=== PATIENT | female | born 1950 | race Caucasian/White ===

== ENCOUNTER 2021-12-26 17:32 | Observation (INO) ==
[2021-12-26] MEDS ORDERED: Melatonin 3 MG TABLET PO PRN (20:59)
[2021-12-26] MEDS ORDERED: *HR* HYDROcodone/Acet 5/325 mg TABLET PO PRN (20:59)
[2021-12-26] MEDS ORDERED: Acetaminophen 325 MG TABLET PO PRN (20:59)
[2021-12-26] MEDS ORDERED: Naloxone 0.4 MG/ML INJ IVP PRN (20:59)
[2021-12-26] MEDS ORDERED: Ondansetron 4 MG/2 ML VIAL IVP PRN (20:59)
[2021-12-26] MEDS ORDERED: 0.9 % Sodium Chloride 1,000 ML IVC SCH (21:00)
[2021-12-26] MEDS ORDERED: Ipratropium 1 PUFF INHALER IH PRN (21:56)
[2021-12-27] MEDS ORDERED: *HR* Dextrose 50 % in Water (Syg) 50 ML SYRINGE IVP PRN ×2 (01:18→19:12)
[2021-12-27] MEDS ORDERED: D5% in Water 1,000 ML IVC PRN ×2 (01:18→19:12)
[2021-12-27] MEDS ORDERED: Dextrose Gel 15 GM/37.5 ML TUBE PO PRN ×4 (01:18→19:12)
[2021-12-27] MEDS: 0.9 % Sodium Chloride 1,000 ML IVC SCH ×2 (01:52→08:29)
[2021-12-27 04:43] LABS: Basophils % 0.8 %; Eosinophils # 0.1 K/mcL (0.0-0.6); Eosinophils % 1.9 %; Hematocrit 37.7 % (35.3-44.9); Hemoglobin 12.1 g/dL (11.5-15.4); Immature Granulocytes % 0.6 % (0-4); Lymphocytes # 1.7 K/mcL (0.6-4.6); Mean Corpuscular HGB Conc 32.1 g/dL (31.6-35.5); Mean Corpuscular Hemoglobin 28.9 pg (28.0-33.3); Monocytes # 0.5 K/mcL (0.0-1.3); Monocytes % 8.9 %; Neutrophils # 2.9 K/mcL (1.6-8.9); Platelet Count 174 K/mcL (140-400); Red Blood Count 4.19 M/mcL (3.82-4.97); Red Cell Distribution Width 13.5 % (11.5-14.5); Segmented Neutrophils % 54.8 %; White Blood Count 5.3 K/mcL (4.3-11.1)
[2021-12-27 04:57] LABS: INR 1.1; Prothrombin Time 11.8 Seconds (9.4-12.1)
[2021-12-27 05:01] LABS: Calcium 8.9 mg/dL (8.6-10.3); Phosphorous 3.3 mg/dL (2.7-4.5); Potassium 4.4 mEq/L (3.5-5.1)
[2021-12-27 05:08] LABS: Chol/HDL Ratio 6.1 (0-4.9)
[2021-12-27] MEDS: *HR* OxyCODONE Immed Rel 5 MG TABLET PO PRN ×2 (08:35→16:32)
[2021-12-27] MEDS ORDERED: Multivit/Ca/Min/Fe/FA 1 TAB TABLET PO SCH (09:00)
[2021-12-27] MEDS ORDERED: Cholecalciferol (D-3) 1,000 UNIT (25MCG) TABLET PO SCH (09:00)
[2021-12-27] MEDS ORDERED: CeFAZolin Syr 2,000MG/20 ML 2,000 MG/20 ML SYRINGE IVPB ONE (10:32)
[2021-12-27 15:46] VITALS: TEMP 97.3
[2021-12-27] MEDS ORDERED: *HR* Propofol 200 MG/20 ML VIAL IVP ONE (17:33)
[2021-12-27] MEDS ORDERED: *HR* FentaNYL (PF) 100 MCG/2 ML VIAL ONE (17:33)
[2021-12-27] MEDS ORDERED: Lidocaine -MPF 2% 5 ML VIAL ONE (17:33)
[2021-12-27] MEDS ORDERED: Ondansetron 4 MG/2 ML VIAL ONE (17:33)
[2021-12-27] MEDS ORDERED: Isovue-300 50ML VIAL ONE (17:40)
[2021-12-27] MEDS ORDERED: EPHEDrine 50 MG/ML VIAL ONE (18:28)
[2021-12-27] MEDS ORDERED: Acetaminophen 325 MG TABLET PO PRN (19:12)
[2021-12-27 21:50] VITALS: BP 157/83; PULSE 85; O2SAT 91
[2021-12-28] MEDS ORDERED: Cholecalciferol (D-3) 1,000 UNIT (25MCG) TABLET PO SCH (09:00)
== END 2021-12-27 22:01 | disposition home or self-care (01) ==
LOC: 3BNU → SUATTDRO 20:06
PROVIDERS: ADMIT Internal Medicine; ATTEND Internal Medicine

== ENCOUNTER 2022-01-24 13:19 | Observation (INO) ==
[2022-01-24] MEDS ORDERED: ceFAZolin 2,000 MG in Water for inj. (sterile) 20 ML IVP ONE (13:53)
[2022-01-24] MEDS ORDERED: Ringers Solution, Lactated 1,000 ML IVC SCH (14:00)
[2022-01-24] MEDS ORDERED: *HR* FentaNYL (PF) 100 MCG/2 ML VIAL IVP PRN (14:15)
[2022-01-24] MEDS ORDERED: *HR* Propofol 200 MG/20 ML VIAL IVP ONE (14:43)
[2022-01-24] MEDS ORDERED: Lidocaine -MPF 2% 5 ML VIAL ONE (14:43)
[2022-01-24] MEDS ORDERED: Ondansetron 4 MG/2 ML VIAL ONE ×2 (14:43→18:04)
[2022-01-24] MEDS ORDERED: *HR* FentaNYL (PF) 100 MCG/2 ML VIAL ONE (14:43)
[2022-01-24] MEDS ORDERED: ceFAZolin 1,000 MG in 0.9 % Sodium Chloride 10 ML IVPB SCH (15:00)
[2022-01-24] MEDS: *HR* Meperidine 25 MG/ML SYRINGE IVP PRN ×2 (17:07→17:21)
[2022-01-24] MEDS ORDERED: Ondansetron 4 MG/2 ML VIAL IVP ONE (18:03)
[2022-01-24] MEDS ORDERED: *HR* Meperidine 25 MG/ML SYRINGE IVP ONE (18:05)
[2022-01-24] MEDS ORDERED: Acetaminophen IV 1,000 MG/100 ML BAG IVPB PRN (18:41)
[2022-01-24] MEDS ORDERED: Acetaminophen IV 1,000 MG/100 ML BAG IVPB ONE (18:45)
[2022-01-24] MEDS ORDERED: Ketorolac 30 MG/ML VIAL IM PRN (19:29)
[2022-01-24] MEDS ORDERED: Naloxone 0.4 MG/ML INJ IVP PRN (19:29)
[2022-01-24] MEDS ORDERED: Ondansetron 4 MG/2 ML VIAL IVP PRN (19:29)
[2022-01-24] MEDS ORDERED: Ibuprofen 400 MG TABLET PO PRN (19:29)
[2022-01-24] MEDS: cefTRIAXone 1,000 MG in 0.9 % Sodium Chloride 10 ML IVP SCH (20:09)
[2022-01-24] MEDS: 0.9 % Sodium Chloride 1,000 ML IVC SCH (20:09)
[2022-01-24] MEDS: Acetaminophen IV 1,000 MG/100 ML BAG IVPB SCH (23:44)
[2022-01-25] MEDS: 0.9 % Sodium Chloride 1,000 ML IVC SCH (04:02)
[2022-01-25 05:44] LABS: Monocytes % 2.8 %
[2022-01-25 05:45] LABS: Basophils % 0.1 %; Hematocrit 39.1 % (35.3-44.9); Hemoglobin 12.7 g/dL (11.5-15.4); Immature Granulocytes % 2.2 % (0-4); Lymphocytes # 0.3 K/mcL (0.6-4.6); Lymphocytes % 1.1 %; Mean Corpuscular HGB Conc 32.5 g/dL (31.6-35.5); Mean Corpuscular Hemoglobin 28.7 pg (28.0-33.3); Mean Corpuscular Volume 88.5 fL (83.0-100.0); Mean Platelet Volume 11.9 fL (9.4-12.4); Monocytes # 0.8 K/mcL (0.0-1.3); Neutrophils # 26.1 K/mcL (1.6-8.9); Platelet Count 132 K/mcL (140-400); Red Blood Count 4.42 M/mcL (3.82-4.97); Red Cell Distribution Width 14.4 % (11.5-14.5); Segmented Neutrophils % 93.8 %; White Blood Count 27.8 K/mcL (4.3-11.1)
[2022-01-25] MEDS: Acetaminophen IV 1,000 MG/100 ML BAG IVPB SCH (06:09)
[2022-01-25 07:36] LABS: Calcium 9.2 mg/dL (8.6-10.3); Potassium 4.5 mEq/L (3.5-5.1)
[2022-01-25] MEDS: cefTRIAXone 1,000 MG in 0.9 % Sodium Chloride 10 ML IVP SCH (07:49)
[2022-01-25 08:04] VITALS: O2SAT 93
[2022-01-25 08:09] VITALS: BP 85/59; PULSE 65; TEMP 97.6
[2022-01-25] MEDS ORDERED: Gabapentin 300 MG CAPSULE PO SCH (09:00)
== END 2022-01-25 10:20 | disposition home or self-care (01) ==
LOC: 3ANU 13:19 → SAMDAY 13:19 → 3ANU 19:26
PROVIDERS: ADMIT Urology; ATTEND Urology